=== PATIENT | male | born 2000 | race Caucasian/White ===

== ENCOUNTER 2020-08-05 14:46 | Emergency (ER) | payer OTHER ==
[2020-08-05 15:03] VITALS: TEMP 98; BMI 23.6
[2020-08-05 16:56] LABS: BASO % 0.6 % (0-2.0); EOS % 0.6 % (0-4.5); HEMATOCRIT 47.5 % (35.4-49); LYMPH % 29.6 % (8-40); MCH 28.9 pg (25.7-33.7); MCHC 33.6 g/dl (32.0-35.9); MEAN PLT VOLUME 8.1 fl (7.5-11.1); MONO % 7.1 % (3.8-10.2); NEUT % 62.1 % (42.8-82.8); PLATELET COUNT 255 K/MM3 (134-434); RBC 5.52 M/mm3 (4.00-5.60); RDW 12.8 % (11.9-15.9); WHITE BLOOD COUNT 9.1 K/mm3 (4.0-10.0)
[2020-08-05 17:12] VITALS: BP 149/78; PULSE 88
[2020-08-05 18:05] LABS: POTASSIUM 4.1 mmol/L (3.5-5.1)
[2020-08-05 18:07] LABS: BLOOD UREA NITROGEN 9.2 mg/dL (7-18); CALCIUM 10.1 mg/dL (8.5-10.1)
[2020-08-05 18:08] LABS: ALBUMIN 4.9 g/dl (3.4-5.0)
[2020-08-05 18:12] LABS: BILIRUBIN,TOTAL 0.3 mg/dL (0.2-1); TOT PROT 8.5 g/dl (6.4-8.2)
== END 2020-08-05 18:41 | disposition home or self-care (01) ==
LOC: JER 14:46
DX: R20.2 Paresthesia of skin (principal)
CPT/HCPCS: 36415; 80053; 82607; 85025; 93005; 93010; 99284-25